=== PATIENT | male | born 1955 | race Caucasian/White ===

== ENCOUNTER → 2017-01-29 | Outpatient (CLI) | payer OTHER ==
[~2017-01-29] MED LIST: APIX5TAB PO; ASPI-664 PO; ATOR80TA75 PO; DILT240C79 PO; LANT3I SC; LOSA50TA6 PO; METF1000 PO; NOVO3I SC
--- NOTE | 2017-01-30 16:40 | RADRPT ---
PROCEDURE: I- 131 therapy CLINICAL INDICATION: 61 -year-old patient with hyperthyroidism, for I - 131 ablation. TECHNIQUE: On January 29, 2017, 29.1 mCi of I - 131 were administered orally to the patient. COMPARISON: No prior treatments. FINDINGS: The patient was advised about the nature of the treatment, alternatives, benefits, risks, side effec ts in radiation safety precautions. Written informed consent was obtained. No immediate complications were observed. IMPRESSION: 29.1 mCi of oral I - 131 therapy. RPTAT: QQ .Eryn Land MD, MD Date Time Electronically viewed and signed by .Eryn Land MD, on 01/30/2017 16:40 .L/
--- NOTE | 2017-01-30 16:42 | RADRPT ---
PROCEDURE: I- 131 therapy CLINICAL INDICATION: 60 -year-old patient with hyperthyroidism, for I - 131 ablation. TECHNIQUE: On January 16, 2016, 23.6 mCi of I - 131 were administered orally to the patient. COMPARISON: No prior treatments. FINDINGS: The patient was advised about the nature of the treatment, alternatives, benefits, risks, side effec ts in radiation safety precautions. Written informed consent was obtained. No immediate complications were observed. IMPRESSION: 23.6 mCi of oral I - 131 therapy. RPTAT: QQ Signed By Eryn Land MD .Eryn Land MD, MD Date Time Electronically viewed and signed by .Eryn Land MD, MD on 01/30/2017 16:42 .L/
== END | disposition home or self-care (01) ==
LOC: NUC 13:38
PROVIDERS: ATTEND Internal Medicine
DX: E05.20 Thyrotoxicosis with toxic multinodular goiter without thyrotoxic crisis or storm (principal)
CPT/HCPCS: 79005; A9517

== ENCOUNTER 2017-10-04 18:46 | Observation (INO) | END 2017-10-05 18:08 | disposition home or self-care (01) ==

== ENCOUNTER 2018-04-27 19:07 | Inpatient (IN) | END 2018-04-29 16:32 | disposition home or self-care (01) | DRG 69 ==

== ENCOUNTER 2018-08-22 18:04 | Emergency (ER) | payer SELFPAY ==
[~2018-08-22] VITALS: Ht 185.4 cm; Wt 136.0 kg
[~2018-08-22 18:04] MED LIST changes: -APIX5TAB PO; -ASPI-664 PO; +ASPI-817 PO; +ATOR-2 PO; -ATOR80TA75 PO; +CARV12.579 PO; +DIGO125T PO; -DILT240C79 PO; +INSU100I12 SQ; +LEVO150T7 PO; +LOSA100T15 PO; -LOSA50TA6 PO; -METF1000 PO; +METF100010 PO; -NOVO3I SC; +RIVA20TA5 PO
[2018-08-22 18:07] VITALS: BP 112/76; PULSE 86; RESP 22; Ht 185.4 cm; Wt 136.0 kg
== END 2018-08-22 22:57 | disposition left against medical advice (07) ==
LOC: E/R 18:04
DX: Z53.21 Procedure and treatment not carried out due to patient leaving prior to being seen by health care provider (principal)